=== PATIENT | male | born 1935 | race Caucasian/White ===

== ENCOUNTER 2017-01-23 15:25 | Inpatient (IN) ==
[2017-01-23] MEDS ORDERED: ENOXAPARIN 100 MG/ML SYRINGE SUBCUT STA (16:15)
[2017-01-23] MEDS ORDERED: ASPIRIN 325 MG TABLET PO STA (16:15)
--- NOTE | 2017-01-23 16:19 | EKG Report ---
Stationary ECG Study [facility] ER Test Date: 01/23/2017 3:35:43 PM Pat Name: DENNISE VALLES Department: Room: Gender: M Director Process Improvement: : 1935 Requested by: Hira Adorno Order Number: [id number] Reading MD: ANNA FERNANDO Intervals [place] Rate: 82 P: 78 RI: 174 QRS: 53 QRSD: 85 T: 64 QT: 359 QTc: 398 Interpretive Statements SINUS RHYTHMAt 82 bpm NST, consider ischemia Electronically Signed On 01-24-17 10:25:45 CDT by ANNA FERNANDO [id number]
[2017-01-23 16:23] LABS: Basophils # 0.1 10*3/uL (0.0-0.2); Basophils % 2.6 % (0.0-0.8); Eosinophils # 0.1 10*3/uL (0.0-0.87); Eosinophils % 2.6 % (0.00-10.9); Hematocrit 34.8 VOL% (42.0-52.0); Hemoglobin 10.9 GM/DL (14.0-18.0); Immature Granulocytes % 0.4 %; Immature Granulocytes Absolute 0.02 #; Lymphocytes # 1.2 10*3/uL (1.4-4.0); Lymphocytes % 26.4 % (21.2-54.2); Mean Corpuscular HGB Conc 31.3 GM/DL (32-36); Mean Corpuscular Hemoglobin 25 PG (27-34); Mean Corpuscular Volume 78.6 FL (87-102); Mean Platelet Volume 11.4 FL (9.6-12.0); Monocytes # 0.5 10*3/uL (0.11-0.8); Monocytes % 9.7 % (1.7-12.7); Neutrophils # 2.7 10*3/uL (1.4-7.4); Neutrophils % 58.3 % (38.7-73.9); Platelet Count 328 T/CUMM (130-400); Red Blood Count 4.43 MC/CUMM (3.8-5.5); Red Cell Distribution Width 15.8 % (9.3-17.3); White Blood Count 4.6 T/CUMM (4-12)
[2017-01-23] MEDS ORDERED: ASPIRIN 325 MG TABLET ONE (16:27)
[2017-01-23] MEDS ORDERED: ENOXAPARIN 80 MG/0.8 ML SYRINGE SUBCUT ONE (16:27)
[2017-01-23 16:39] LABS: Alanine Aminotransferase 16 U/L (16-61); Albumin 3.8 G/DL (3.4-5.0); Alkaline Phosphatase 103 U/L (45-117); Aspartate Amino Transferase 13 U/L (0-37); Bilirubin,Total < 0.39 MG/DL (0.2-1.0); Blood Urea Nitrogen 11 MG/DL (7-18); Calcium 8.8 MG/DL (8.5-10.1); Glucose 95 MG/DL (74-106); Magnesium 2.8 MG/DL (1.8-2.4); Osmolality,Calculated 279.3 MOS/KG (273-304); Sodium 141 MMOL/L (136-145); Total Protein 6.9 G/DL (6.4-8.3)
[2017-01-23 16:44] LABS: Band Neutrophils 1 % (0-10); Eosinophils 3 % (0-10); Lymphocytes 28 % (20-55); Platelet Estimate Adequate; Segmented Neutrophils 55 % (50-85); Total Cells Counted 100
--- NOTE | 2017-01-23 16:53 | XRay Report ---
XR chest 1V portable Indication: Chest pain. Comparison: Chest x-ray 09/09/2013 Technique: Portable AP chest was performed. Findings: The heart size appears within normal limits. Chronic changes of the aortic knob appears stable. Pulmonary vasculature demonstrates no specific abnormality. Hilar structures demonstrate fairly symmetric appearance. The lungs demonstrate a pattern of stranding within the lung bases which is somewhat nonspecific suggesting chronic interstitial disease or possibly atelectatic change. Minimal blunting of the right costophrenic angle is present. Emphysematous changes are not excluded. Bones and soft tissues demonstrate no evidence of acute pathology. Impression: 1. Emphysematous changes and I excluded. No superimposed acute process is suggested within the chest. 01/23/2017 4:50 PM PROCEDURE INTERPRETED AT [facility] DEPARTMENT OF RADIOLOGY Final Report Signed by: Dr. Bandar Goodman
[2017-01-23] MEDS ORDERED: ALBUTEROL/IPRATROPIUM 3 ML NEB RESP TX STA (16:59)
--- NOTE | 2017-01-23 17:08 | Emergency Department Note ---
Jac Ortega Hilary, am scribing for, and in the presence of, Hira Key MD 16:10. Yesi Ortega Phillip K, MD, personally performed the services described in this documentation, ascribed by Jany Nathan in my presence, and it is both accurate and complete [id number] . Arrival - Arrival Chief Complaint: Chest Pain Stated Complaint: CHEST PAIN, SOB ED Nursing Triage Note: pt had chest pain 3 weeks ago then it went away. c/o chest pain. states is hurts deep. +sob Mode of Arrival: Wheelchair Limitations: No Limitations Source: Patient, RN Notes Reviewed - History of Present Illness HPI Narrative: Pt is a 81 y/o white male presenting to the ED with c/o chest pain which onset 3 weeks ago and is intermittent. Pt reports that the pain is sharp and midsternal that radiates to both shoulders. Pt confirms swelling in his feet, intermittent chest pain, and chronic SOB but denies fever, cough, diaphoresis, nausea or vomiting. Pt has a PMHx of COPD and HTN. No other complaints or problems stated in the ED. Onset (ago): week(s) Consistency: intermittent Allergies/Adverse Reactions: Allergies Allergy/AdvReac Type Severity Reaction Status Date / Time iodine Allergy Severe Swelling Verified 05/05/16 06:53 of Lip/Tongue/Throat Sulfa (Sulfonamide Allergy Severe Swelling Verified 05/05/16 06:53 Antibiotics) of Lip/Tongue/Throat codeine Allergy Mild RASH Verified 05/05/16 06:53 Home Medications: Home Medications Medication Instructions Recorded Confirmed Type Amitriptyline [Elavil] 25 mg PO BEDTIME 05/04/16 01/23/17 History Budesonide/Formoterol 160-4.5 2 puff INH BID 05/04/16 01/23/17 History [Symbicort 160-4.5] Omeprazole 1 tablet PO DAILY 05/04/16 01/23/17 History Tamsulosin [Flomax] 0.4 mg PO DAILY 05/04/16 01/23/17 History amLODIPine [Norvasc] 10 mg PO BEDTIME 05/04/16 01/23/17 History Cholecalciferol (Vitamin D3) 2,000 units PO BID 05/05/16 01/23/17 History [Vitamin D3] Ipratropium/Albuterol Sulfate 3 ml INH QID 05/05/01/23/17 History [Iprat-Albut 0.5-3(2.5) mg/3 ml] Albuterol Sulfate [Ventolin HFA] 2 puff INH Q4H PRN 01/23/17 01/23/17 History Review of System - Review of System 12 point system: reviewed and no additional remarkable complaints except as stated - Review of System Constitutional: Absent: fever Respiratory: Present: respiratory distress (SOB). Absent: cough Cardiovascular: Present: chest pain Gastrointestinal: Absent: nausea, vomiting Musculoskeletal: Present: joint swelling (feet swelling) Medical,Surgical,& Family Hx - Medical History Cardio: History of: Hypertension (BP MED AT NIGHT) Neurology: No history of: Seizures HEENT: History of: Ear Problem, Eye Problem (GLASSES), Dental Problems (DENTURES ) Rheumatology: History of;: Rheumatoid Arthritis Other: History of: Skin Problems (LESION/NASAL) - Surgical History HEENT Surgeries: Surgical HX of: Eye Surgery (COD), Tonsilectomy & Adenoidectomy - Family History Family History: Reports;: Family Heart Disease (PARENTS) - Social History Smoking Status: Never smoker Frequency of Alcohol Use: None Type of Drug Use: None Exam Vital Signs: Vital Signs Temperature 98.3 F 01/23/17 15:34 Pulse Rate 81 01/23/17 17:20 Respiratory Rate 18 01/23/17 17:20 Blood Pressure 134/64 01/23/17 15:34 O2 Sat by Pulse Oximetry 95 01/23/17 15:34 - General General appearance: alert, in no apparent distress - Head Head exam: Present: atraumatic, normocephalic - Eye Eye exam: Present: normal appearance, PERRL, EOMI - ENT ENT exam: Present: mucous membranes dry, TM's normal bilaterally. Absent: mucous membranes moist - Neck Neck exam: Present: full ROM, trachea midline. Absent: tenderness - Chest Chest inspection: Present: symmetric chest wall rise. Absent: tenderness - Respiratory Respiratory exam: Present: prolonged expiratory phase, wheezes (diffused expiratory wheezing bilaterally) - Cardiovascular Cardiovascular exam: Present: regular rate, normal rhythm, murmur (2/6 systolic ejection murmur) - Abdominal Exam Abdominal exam: Present: soft, normal bowel sounds. Absent: distention, tenderness - Extremities Exam Extremities exam: Present: full ROM, pedal edema (3+ edema in left leg and 2+ edema in right leg with swelling in the calf). Absent: tenderness - Back Exam Back exam: Present: full ROM. Absent: tenderness - Neurological Exam Neurological exam: Present: alert, oriented X3, CN II-XII intact. Absent: motor sensory deficit - Psychiatric Psychiatric exam: Present: normal affect, normal mood - Skin Skin exam: Present: warm, dry, intact, normal color. Absent: rash Course Course Narrative: Patient discussed with Dr. Armenta Results - Labs CBC & BMP: 01/23/17 15:44 01/23/17 15:44 Lab Results: I have reviewed the patients labs (Troponin is 0.105) - EKG EKG results: interpreted by MARGARETTE, sinus rhythm (ST depression laterally with some suggestion of an old septal infarct. Patient also has some ST depression noted in the inferior leads.) - Diagnostic Findings Procedure: Chest x-ray: report reviewed by me (Emphysema) Disposition Clinical Impression: Chest pain, Possible unstable angina Case discussed with: patient Disposition: Still a Patient Condition: Guarded Additional Instructions: Admit for further workup
[2017-01-23] MEDS ORDERED: ONDANSETRON 4 MG/2 ML VIAL IV PRN (17:36)
[2017-01-23] MEDS ORDERED: MAGNESIUM SULF RIDER 2 GM in PREMIX 1 EACH IV PRN (17:36)
[2017-01-23] MEDS ORDERED: MAGNESIUM SULF RIDER 4 GM in PREMIX 1 EACH IV PRN (17:36)
[2017-01-23] MEDS ORDERED: ACETAMINOPHEN 325 MG TABLET PO PRN (17:36)
[2017-01-23] MEDS ORDERED: ALBUTEROL 1.25 MG/3 ML NEB RESP TX PRN (21:13)
[2017-01-23] MEDS: AMITRIPTYLINE 25 MG TABLET PO SCH (21:29)
[2017-01-23] MEDS ORDERED: amLODIPine 10 MG TABLET PO SCH (21:30)
[2017-01-23] MEDS: CHOLECALCIFEROL 1,000 UNIT TABLET PO SCH (21:38)
[2017-01-23] MEDS: BUDESONIDE/FORMOTEROL 160-4.5 INHALER 6 GM INH SCH (21:38)
[2017-01-23] MEDS ORDERED: NON-FORMULARY MEDICATION (Albuterol Sulfate [Ventolin Hfa] 2 PUFF) INH PRN (22:19)
--- NOTE | 2017-01-23 22:24 | Cardiology History & Physical ---
Assessment and Plan (1) Chest pain Status: Acute Current Visit: Yes (2) Elevated troponin Status: Acute Current Visit: Yes (3) Hypertension Status: Chronic Current Visit: Yes (4) Carotid bruit Status: Acute Current Visit: Yes (5) Murmur Status: Acute Current Visit: Yes (6) Lower extremity edema Status: Chronic Current Visit: Yes (7) Abdominal aneurysm Status: Acute Current Visit: Yes (8) COPD (chronic obstructive pulmonary disease) Status: Chronic Current Visit: Yes (9) Anemia Status: Acute Current Visit: Yes (10) Allergy to iodine Status: Chronic Current Visit: Yes (11) Allergy to JUSTA inhibitors Status: Chronic Current Visit: Yes History of Present Illness Chief complaint: Chest pain History of present illness: Go Go Dancer: None Primary CARE provider: Dr. Yu Mr. Kumari is a 81 year old male without a prior cardiac history, with risk factors significant for a family history of coronary disease, hypertension, advanced age, tobacco use. He has been experiencing chest pain for approximately 1 month. It is described as a deep aching that radiates up into his shoulders. Initially he does not describe any clear triggers or alleviators , but his daughter is present and provides additional history that his mother has described to her on numerous occasions that his chest discomfort occurs with exertion. Was beginning to happen with less exertion and the severity was increasing. There is some associated shortness of breath. He does have chronic stable dyspnea on exertion but this is worse now when the chest pain is present. He has had some worsening bilateral lower extremity edema, left greater than right. He is currently pain-free. He denies a history of melena, bright red blood per rectum, kidney stones, history of GI bleeding. He does have a history of allergy to JUSTA inhibitors and shrimp/ iodine which cause tongue swelling. Is not clear to me that he is ever actually been exposed to the iodine contrast, but they do describe "iodine" as an allergy. Cardiac biomarkers are mildly abnormal. He has an unstable gait, but does not fall frequently. He has some diffuse arthralgias. There is some question as to whether or not he has a history of an abdominal aortic aneurysm, they believe he does but this has not recently been screened. Impression and plan: 1. Suspected acute coronary syndrome-the patient has chest discomfort with mildly elevated cardiac biomarkers. He is it at least intermediate risk of having underlying coronary artery disease. I have discussed the role, risks and benefits of cardiac catheterization with the patient and he is agreeable to proceeding. We will need to pretreat him for iodine allergy. We will need to workup his anemia, obtain bilateral carotid ultrasounds, echocardiogram, bilateral lower extremity venous Dopplers and abdominal ultrasound assessment for possible abdominal aortic aneurysm prior to this procedure. 2. Bilateral carotid bruits-this may be radiation of an aortic murmur and we will order bilateral carotid Dopplers. 3. Possible history of abdominal aortic aneurysm-we will need to get an ultrasound to determine its severity. 4. Edema-this may be related to the Norvasc but is asymmetrical left greater than right. We will rule out bilateral lower extremity DVTs. 5. Murmur-he has a murmur of aortic stenosis with possible mitral regurgitation. We will need to obtain an echocardiogram to determine the severity. 6. Anemia-this is microcytic. He has no awareness of this. We will need to get iron studies and stool studies to further diagnosis. 7. Iodine allergy-we will pretreat him for cardiac catheterization with steroids And antihistamines. 8. JUSTA inhibitor allergy Home Medications Medication Instructions Recorded Confirmed Type Amitriptyline [Elavil] 25 mg PO BEDTIME 05/04/16 01/23/17 History Budesonide/Formoterol 160-4.5 2 puff INH BID 05/04/16 01/23/17 History [Symbicort 160-4.5] Omeprazole 1 tablet PO DAILY 05/04/16 01/23/17 History Tamsulosin [Flomax] 0.4 mg PO DAILY 05/04/16 01/23/17 History amLODIPine [Norvasc] 10 mg PO BEDTIME 05/04/16 01/23/17 History Cholecalciferol (Vitamin D3) 2,000 units PO BID 05/05/16 01/23/17 History [Vitamin D3] Ipratropium/Albuterol Sulfate 3 ml INH QID 05/05/16 01/23/17 History [Iprat-Albut 0.5-3(2.5) mg/3 ml] Albuterol Sulfate [Ventolin HFA] 2 puff INH Q4H PRN 01/23/17 01/23/17 History Allergies Allergy/AdvReac Type Severity Reaction Status Date / Time iodine Allergy Severe Swelling Verified 05/05/16 06:53 of Lip/Tongue/Throat Sulfa (Sulfonamide Allergy Severe Swelling Verified 05/05/16 06:53 Antibiotics) of Lip/Tongue/Throat codeine Allergy Mild RASH Verified 05/05/16 06:53 JUSTA Inhibitors Allergy Swelling Verified 01/23/17 22:19 of Lip/Tongue/Throat 12 point system: reviewed and no additional remarkable complaints except as stated Medical,Surgical,& Family Hx - Medical History Cardio: History of: Hypertension (BP MED AT NIGHT) Neurology: No history of: Seizures HEENT: History of: Ear Problem, Eye Problem (GLASSES), Dental Problems (DENTURES ) Rheumatology: History of;: Rheumatoid Arthritis Respiratory: History of: COPD (Followed by Dr. Conner) Other: History of: Skin Problems (LESION/NASAL) - Surgical History HEENT Surgeries: Surgical HX of: Eye Surgery (COD), Tonsilectomy & Adenoidectomy - Family History Family History: Reports;: Family Heart Disease (PARENTS) - Social History Smoking Status: Never smoker Frequency of Alcohol Use: None Type of Drug Use: None Marital Status: Lives With:: Spouse Functional capacity: uses cane/walker Cardiology Physical Exam - Constitutional Vitals: Vital Signs Temp Pulse Resp BP Pulse Ox 97.4 F L 91 H 20 132/79 99 01/23/17 19:47 01/23/17 19:47 01/23/17 19:47 01/23/17 19:47 01/23/17 19:47 Intake and Output 01/23/17 01/23/17 01/23/17 07:59 15:59 23:59 Other: Weight 68.946 kg Patient Weight 01/23/17 23:59 Weight 68.946 kg Exam: General appearance: normal weight, no acute distress - Head Head exam: Present: normal inspection, normocephalic, atraumatic. Absent: hematoma, laceration - Eye Eye exam: Present: EOMI. Absent: conjunctival injection, nystagmus, periorbital swelling, scleral icterus, laceration to eyelids Pupils: Present: PERRL. Absent: constricted, dilated, fixed, irregular, unequal - ENT ENT exam: Present: normal exam, normal external ear exam - Neck Neck exam: Present: normal inspection. Absent: lymphadenopathy, meningismus, tenderness, thyromegaly - Respiratory Respiratory exam: Present: Prolonged expiration bilaterally with scant wheezing. Absent: accessory muscle use, chest wall tenderness - Cardiovascular Cardiovascular exam: Present: regular rate and rhythm with a 3/6 holosystolic murmur. The carotid pulse is not delayed or weakened, but there are bilateral carotid bruits right greater than left. Absent: gallop, JVD, rubs - GI/Abdominal GI/Abdominal exam: Present: normal bowel sounds, soft. Absent: distended, firm , guarding, hernia, mass, tenderness, rebound. - Extremities Exam Extremities exam: Present: Mildly decreased pulses with 1+ right lower extremity edema, 2+ left lower extremity edema. Absent: calf tenderness - Back Exam Back exam: Present: normal inspection. Absent: muscle spasm, vertebral tenderness - Neurological Exam Neurological exam: Present: alert, oriented X3, grossly intact without resting or intention tremor - Psychiatric Psychiatric exam: Present: normal affect, normal mood - Skin Skin exam: Present: normal color, warm, dry, intact. Absent: cyanosis, diaphoretic, rash, urticaria Result/EKG - Labs CBC & BMP: 01/23/17 15:44 01/23/17 15:44 Lab Results: I have reviewed the past 24 hour labs Labs: Laboratory Results - last 24 hr 01/23/17 19:25 Troponin I 0.114 H - Diagnostic Findings Procedure: Chest x-ray: report reviewed by me - EKG EKG results: interpreted by me, sinus rhythm, no acute changes Quality Measures - Stroke Symptom Onset Unknown: No
[2017-01-23] MEDS ORDERED: POTASSIUM CHLORIDE RIDER 10 MEQ in PREMIX 1 EACH IV PRN (22:31)
[2017-01-23] MEDS: SODIUM CHLORIDE 0.45% 1,000 ML IV SCH (23:15)
[2017-01-24] MEDS: ALBUTEROL/IPRATROPIUM 3 ML NEB RESP TX SCH ×4 (01:38→19:34)
[2017-01-24] MEDS ORDERED: NITROGLYCERIN SL 0.4 MG TABLET SL ONE (02:43)
[2017-01-24] MEDS: NITROGLYCERIN SL 0.4 MG TABLET SL PRN ×3 (02:45→11:53)
[2017-01-24] MEDS ORDERED: diphenhydrAMINE CAP 25 MG CAPSULE PO ONE (06:00)
[2017-01-24] MEDS ORDERED: DIAZEPAM 5 MG TABLET PO ONE (06:00)
[2017-01-24 06:17] LABS: Basophils # 0.1 10*3/uL (0.0-0.2); Basophils % 3.5 % (0.0-0.8); Eosinophils # 0.1 10*3/uL (0.0-0.87); Eosinophils % 2.8 % (0.00-10.9); Hematocrit 32.7 VOL% (42.0-52.0); Hemoglobin 9.9 GM/DL (14.0-18.0); Immature Granulocytes % 0.3 %; Immature Granulocytes Absolute 0.01 #; Lymphocytes # 1.1 10*3/uL (1.4-4.0); Lymphocytes % 27.5 % (21.2-54.2); Mean Corpuscular HGB Conc 30.3 GM/DL (32-36); Mean Corpuscular Hemoglobin 24 PG (27-34); Mean Corpuscular Volume 78.4 FL (87-102); Mean Platelet Volume 11.7 FL (9.6-12.0); Monocytes # 0.5 10*3/uL (0.11-0.8); Monocytes % 12.9 % (1.7-12.7); Neutrophils # 2.1 10*3/uL (1.4-7.4); Platelet Count 307 T/CUMM (130-400); Red Blood Count 4.17 MC/CUMM (3.8-5.5); Red Cell Distribution Width 15.9 % (9.3-17.3)
[2017-01-24 06:44] LABS: % Iron Saturation 8.2 % (18-50); Calcium 8.9 MG/DL (8.5-10.1); Magnesium 2.7 MG/DL (1.8-2.4); Potassium 4.5 MMOL/L (3.5-5.1); Risk Ratio 4.33; VLDL CHOLESTEROL 27.8 MG/DL
[2017-01-24 06:51] LABS: Folate > 24.0 NG/ML (5.4-24.0); Vitamin B12 367 PG/ML (211-911)
[2017-01-24 06:54] LABS: Eosinophils 6 % (0-10); Hypochromasia 1+; Lymphocytes 32 % (20-55); Platelet Estimate Adequate; Segmented Neutrophils 50 % (50-85); Total Cells Counted 100
[2017-01-24 06:55] LABS: Ovalocytes Slight
--- NOTE | 2017-01-24 07:47 | Ultrasound Report ---
Referring physician: Mariam Armenta MD Exam: Bilateral lower extremity venous ultrasound Date: January 24, 2017 Comparison: None Reason: Bilateral lower extremity edema, left greater than right Technique: Duplex scan of the bilateral lower extremity veins was performed using B-Mode/grayscale imaging and Doppler spectral analysis and color flow. Ultrasound images were captured and stored. Findings: There is no evidence of thrombus within the left or right common femoral veins, saphenous veins, superficial femoral veins or popliteal veins. Normal compression and augmentation are present throughout. Normal color flow and spectral analysis are observed. Impression: No evidence of deep venous thrombosis within either lower extremity. PROCEDURE INTERPRETED AT [facility] DEPARTMENT OF RADIOLOGY Final Report Signed by: Dr. Kiara Perez
--- NOTE | 2017-01-24 08:17 | EKG Report ---
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
--- NOTE | 2017-01-24 08:29 | Ultrasound Report ---
Referring physician: Mariam Armenta MD Exam: Carotid ultrasound Date: January 24, 2017 Comparison: None Reason: Bilateral carotid bruit Technique: Duplex scan of the carotid arteries was performed using B-Mode/grayscale imaging and Doppler spectral analysis and color flow. Ultrasound images were captured and stored. Findings: There is calcified plaque at the common carotid arteries, carotid bifurcations and proximal internal carotid arteries bilaterally. The right ICA measures 0.33 cm in diameter, and the left ICA measures 0.25 cm in diameter. The peak systolic velocities are as follows: Right CCA: 216 cm/s Right proximal ICA: 141 cm/s Right distal ICA: 199 cm/s Right ECA: 177 cm/s Left CCA: 138 cm/s Left proximal ICA: 110 cm/s Left distal ICA: 99 cm/s Left ECA: 113 cm/s The peak systolic ICA/CCA velocity ratios are as follows: 0.9 on the right and 0.8 on the left. Antegrade flow is present within both vertebral arteries. Impression: 1. There is elevated velocity at the right cervical ICA, which is concerning for greater than 50% stenosis. The right ICA is not well-visualized near its origin, and high-grade stenosis cannot be excluded in this region. Correlation with a CTA or MRA of the neck is recommended. 2. 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 3. The Society of Radiologists in Ultrasound consensus conference criteria was used. PROCEDURE INTERPRETED AT [facility] DEPARTMENT OF RADIOLOGY Final Report Signed by: Dr. Kiara Perez
[2017-01-24] MEDS ORDERED: NON-FORMULARY MEDICATION (Cholecalciferol (Vitamin D3) [Vitamin D3] 2,000 UNITS) PO SCH (09:00)
[2017-01-24] MEDS ORDERED: TAMSULOSIN 0.4 MG CAPSULE PO SCH (09:00)
[2017-01-24] MEDS ORDERED: diphenhydrAMINE CAP 50 MG CAPSULE PO PRN (09:32)
[2017-01-24] MEDS: FAMOTIDINE 20 MG/2 ML VIAL IV SCH ×2 (10:21→22:18)
[2017-01-24] MEDS: methylPREDNISolone SOD SUC 125 MG/2 ML VIAL IV SCH ×2 (10:21→18:21)
[2017-01-24] MEDS: PANTOPRAZOLE 40 MG TABLET PO SCH (10:22)
[2017-01-24] MEDS: CHOLECALCIFEROL 1,000 UNIT TABLET PO SCH ×2 (10:22→20:25)
[2017-01-24] MEDS: BUDESONIDE/FORMOTEROL 160-4.5 INHALER 6 GM INH SCH ×2 (10:23→20:25)
--- NOTE | 2017-01-24 11:11 | History and Physical Update ---
Sedation H&P Update - Dictation Physical: refer to H&P completed by admitting physician - Physical Exam Mental Status: alert and oriented Heart: regular rate and rhythm, other (murmur) Lung: clear to auscultation Abdomen: within normal limits Vitals: within normal limits - Sedation Plan for Sedation: moderate Patient Consent: Procedure disscussed with patient and patinet has consented., Risks and benefits were discussed with patient,including infection,, bleeding, injury to surrounding structures, seizure, temporary nerve, Patient understands and accepts potential risks/benefits and agrees to, proceed. ASA Class: IV Airway Assessment: Class I: Soft palate, uvula, fauces, pillars visible
[2017-01-24] MEDS ORDERED: HEPARIN/NACL 0.9% 2 UNITS/ML 1,000 ML IV ONE (11:56)
[2017-01-24] MEDS ORDERED: LIDOCAINE 1% 20 ML VIAL ONE (11:56)
[2017-01-24] MEDS ORDERED: SODIUM BICARBONATE 2.4 MEQ/5 ML VIAL ONE (11:57)
[2017-01-24] MEDS ORDERED: MIDAZOLAM 2 MG/2 ML VIAL ONE ×5 (12:07→13:06)
[2017-01-24] MEDS ORDERED: fentaNYL 100 MCG/2 ML VIAL ONE (12:07)
[2017-01-24] MEDS ORDERED: NITROGLYCERIN DRIP 50 MG/250 ML BOTTLE IV ONE (12:09)
--- NOTE | 2017-01-24 12:17 | ECHO Report ---
Luis Miguel Kumari Exam Date: 01/24/2017 09:43 Referring Physician: Technologist: Concepcion Bass Age: 81 Ht (in): 71 Wt (lb): 152 Gender: M Exam Location: [facility] Echo Indications: Chest pain, unspecified, Essential (primary) hypertension, Murmur, Elevated tropnonin BP: 103 / 58 HR: 85 Rhythm: Sinus Technical Quality: Poor IMPRESSIONS Low normal mildly reduced LV systolic function, ejection fraction 50%. Grade 1/4 diastolic dysfunction. Moderate to severe left ventricular hypertrophy. Mildly dilated right ventricle. There is mild mitral and tricuspid regurgitation. MEASUREMENTS (Male / Female) Normal Values 2D ECHO LV Diastolic Diameter PLAX 3.0 cm 4.2 - 5.9 / 3.9 - 5.3 cm LV Systolic Diameter PLAX 2.4 cm LV Fractional Shortening PLAX 19.6 % IVS Diastolic Thickness 2.0 cm 0.6 - 1.0 / 0.6 - 0.9 cm LVPW Diastolic Thickness 1.9 cm 0.6 - 1.0 / 0.6 - 0.9 cm RV Internal Dim ED PLAX 4.7 cm Aortic Root Diameter 3.5 cm LA Systolic Diameter LX 4.0 cm 3.0 - 4.0 / 2.7 - 3.8 cm DOPPLER TR Peak Velocity 300.0 cm/s TR Peak Gradient 36.0 mmHg FINDINGS Left Ventricle Decreased left ventricular cavity size. Moderate to severe left ventricular hypertrophy. Left ventricular ejection fraction is estimated at 50 %. There is no regional wall motion abnormality. Right Ventricle Mildly dilated Right Atrium Normal size. Left Atrium Normal size. Mitral Valve There is calcification of the valve and annulus without significant stenosis. Mild mitral valve regurgitation. Aortic Valve Aortic valve sclerosis. Moderate aortic valve stenosis. Peak gradient is 84 mmHg, mean gradient 51 mmHg, aortic valve VTI is 122 cm, LVOT VTI is 30.7 cm. VTI ratio is 0.25. These findings are consistent with severe aortic stenosis. Tricuspid Valve Structurally normal with mild regurgitation. Right ventricular systolic pressures estimated at 46 mmHg. Pulmonic Valve Not well seen. Pericardium No significant effusion. Aorta Normal caliber. Mariam Armenta MD (Electronically Signed) Final Date: 24 Jan 2017 12:16
[2017-01-24] MEDS ORDERED: MORPHINE 10 MG/1 ML VIAL ONE (12:51)
[2017-01-24] MEDS ORDERED: HEPARIN/NACL 0.9% 2 UNITS/ML 500 ML IV ONE (13:01)
[2017-01-24] MEDS ORDERED: PHENYLEPHRINE 50 MG/5 ML VIAL ONE (13:04)
--- NOTE | 2017-01-24 13:42 | Anesthesia Procedures ---
Anesthesia Procedures - Intubation Time out performed intubation: Yes Sedative: Etomidate Mg given sedative: 20 Paralytic: Succinylcholine Mg given paralytic: 160 Laryngoscope: Josh (4) ET Tube Size: 8 ET Tube Uncuffed: No Tube Secured Depth (cm): 22 Tube Secured Location: lips Tube Placement Confirmation: visualized tube passing through cords, equal breath sounds bilaterally, no breath sounds over epigastrium, confirmation by capnometry, confirmation detector color change Patient tolerated procedure intubation: well Intubation Complications: none (Dr. Garcia inserted IABP and patient stabilized)
[2017-01-24] MEDS: SODIUM CHLORIDE 0.45% 1,000 ML IV SCH (14:35)
[2017-01-24] MEDS: PROPOFOL 1,000 MG/100 ML BOTTLE IV SCH (14:45)
[2017-01-24] MEDS: HEPARIN DRIP 25,000 UNITS/500 ML PREMIX IV SCH (14:48)
[2017-01-24 14:58] LABS: Apearance,Urine CLEAR (Clear); Bilirubin,Urine Negative (Negative); Blood, Urine Small mg/dL (Negative); Glucose,Urine (UA) Negative (Negative); Ketones,Urine 5 mg/dL (Negative); Nitrite,Urine Negative (Negative); Protein,Urine Negative; RBC,Urine 1 /HPF (0-4); Urine Color Straw (Yellow); Urine Specific Gravity 1.004 (1.001-1.035); Urine Urobilinogen < 2.0 EU/DL (0.2-1.0); WBC,Urine 2 /HPF (0-6)
--- NOTE | 2017-01-24 15:12 | EKG Report ---
Stationary ECG Study [facility] Test Date: 01/24/2017 3:09:20 PM Pat Name: DENNISE VALLES Department: Room: 104 Gender: M Ramp Boss: CODEY : 1935 Requested by: Jean Marie Mercado Order Number: [id number] Reading MD: STEPHANIE ARELLANO Intervals [place] Rate: 80 P: 68 LA: 185 QRS: 46 QRSD: 86 T: 76 QT: 396 QTc: 432 Interpretive Statements SINUS RHYTHM PROBABLE SEPTAL MYOCARDIAL INFARCTION, PROBABLY OLD Electronically Signed On 01-24-17 21:59:39 CDT by STEPHANIE ARELLANO [email or web address]
--- NOTE | 2017-01-24 15:44 | Pulmonology Consult Note ---
Assessment and Plan (1) Coronary artery disease Status: Acute Assessment and plan: The patient has had a heart cath today and has coronary artery disease. He is on a balloon pump now in the ICU. Current Visit: Yes (2) Aortic stenosis Status: Acute Assessment and plan: The patient has aortic stenosis that is fairly severe on echo. Current Visit: Yes (3) Chest pain Status: Acute Assessment and plan: Patient came in with unstable angina. Current Visit: Yes (4) Hypertension Status: Chronic Assessment and plan: His blood pressure stable at present. Current Visit: Yes (5) COPD (chronic obstructive pulmonary disease) Status: Chronic Assessment and plan: The patient has COPD that is moderate to markedly severe. His FEV1 was around 50% in 2015. His chest x-ray certainly suggest COPD changes. Current Visit: Yes (6) On mechanically assisted ventilation Status: Acute Assessment and plan: We will continue ventilatory support until he stabilizes. Current Visit: Yes History of Present Illness Chief complaint: Ventilator management History of present illness: Mr. Kumari is a 81 year old white male that has been a smoker in the past and has a history of COPD. He came in with some atypical chest pain but was felt to possibly have some cardiac disease. He has had an aortic murmur along with hypertension. He has smoked off and on for a long time. He came in for evaluation and went to the [facility] and has been found to have significant coronary artery disease. He became hypotensive and had to be intubated and placed on the balloon pump. He is now stable on the ventilator in the ICU. He does have a history of COPD and his last FEV1 was 1.4 L. We saw him in early December and he had been relatively stable without a lot of symptoms then. He got some lab work that was unremarkable and got refills of his medicines. Home Medications Medication Instructions Recorded Confirmed Type Amitriptyline [Elavil] 25 mg PO BEDTIME 05/04/16 01/23/17 History Budesonide/Formoterol 160-4.5 2 puff INH BID 05/04/16 01/23/17 History [Symbicort 160-4.5] Omeprazole 1 tablet PO DAILY 05/04/16 01/23/17 History Tamsulosin [Flomax] 0.4 mg PO DAILY 05/04/16 01/23/17 History amLODIPine [Norvasc] 10 mg PO BEDTIME 05/04/16 01/23/17 History Cholecalciferol (Vitamin D3) 2,000 units PO BID 05/05/16 01/23/17 History [Vitamin D3] Ipratropium/Albuterol Sulfate 3 ml INH QID 05/05/16 01/23/17 History [Iprat-Albut 0.5-3(2.5) mg/3 ml] Albuterol Sulfate [Ventolin HFA] 2 puff INH Q4H PRN 01/23/17 01/23/17 History Allergies Allergy/AdvReac Type Severity Reaction Status Date / Time iodine Allergy Severe Swelling Verified 05/05/16 06:53 of Lip/Tongue/Throat Sulfa (Sulfonamide Allergy Severe Swelling Verified 05/05/16 06:53 Antibiotics) of Lip/Tongue/Throat codeine Allergy Mild RASH Verified 05/05/16 06:53 JUSTA Inhibitors Allergy Swelling Verified 01/23/17 22:19 of Lip/Tongue/Throat ROS unobtainable: due to endotracheal tube (Patient is sedated on the ventilator at present.) Exam (Pulmonay) H&P - Constitutional Vitals: Period Temp Pulse Resp BP Sys/Lyn Pulse Ox Last 24 Hr 97.3 F-98.7 F 70-91 15-20 103-149/57-91 92-100 General appearance: normal weight, no acute distress (Patient is sedated on the ventilator at present.) - Head Head exam: Present: normal inspection, normocephalic - Eye Eye exam: Present: EOMI. Absent: scleral icterus Pupils: Present: ALONSO - ENT ENT exam: Present: other (ET tube is in good position) - Neck Neck exam: Present: normal inspection. Absent: lymphadenopathy, thyromegaly - Respiratory Respiratory exam: Present: decreased breath sounds, prolonged expiratory phase, wheezes (He has very faint wheezing now) - Cardiovascular Cardiovascular exam: Present: regular rate and rhythm, systolic murmur (He has a systolic murmur in aortic area). Absent: gallop, JVD - GI/Abdominal GI/Abdominal exam: Present: soft. Absent: distended, organomegaly, tenderness - Extremities Exam Extremities exam: Absent: calf tenderness, edema - Neurological Exam Neurological exam: Present: other (Patient is sedated on the ventilator at present.) - Skin Skin exam: Present: warm, dry Medical,Surgical,& Family Hx - Medical History Cardio: History of: Hypertension (BP MED AT NIGHT) Neurology: No history of: Seizures HEENT: History of: Ear Problem, Eye Problem (GLASSES), Dental Problems (DENTURES ) Rheumatology: History of;: Rheumatoid Arthritis Respiratory: History of: COPD (Followed by Dr. Conner) Other: History of: Skin Problems (LESION/NASAL) - Surgical History HEENT Surgeries: Surgical HX of: Eye Surgery (COD), Tonsilectomy & Adenoidectomy - Family History Family History: Reports;: Family Heart Disease (PARENTS) - Social History Smoking Status: Former smoker Frequency of Alcohol Use: None Type of Drug Use: None Results - Labs CBC & BMP: 01/24/17 04:23 01/24/17 04:23 - Diagnostic Findings Procedure: Chest x-ray: image reviewed by me, report reviewed by me (Chest x- ray shows COPD changes.) Quality Measures - Stroke Symptom Onset Unknown: No
--- NOTE | 2017-01-24 16:07 | Cardiothoracic Consult ---
Assessment and Plan - Time spent with patient Time spent with patient: Greater than 30 minutes (1) Chest pain Status: Acute Assessment and plan: Risk Model and Variables - STS Adult Cardiac Surgery Database Version 2.81 RISK SCORES About the STS Risk Calculator Procedure: AV Replacement + CAB Risk of Mortality: 17.731% Morbidity or Mortality: 72.69% Long Length of Stay: 39.169% Short Length of Stay: 3.353% Permanent Stroke: 3.902% Prolonged Ventilation: 65.781% DSW Infection: 1.995% Renal Failure: 26.463% Reoperation: 21.026% 81-year-old gentleman with severe aortic stenosis and multivessel coronary artery disease he became transiently unstable with ST changes during his cardiac cath today. An intra-aortic balloon pump was inserted and the procedure was aborted. The patient improved after. As I evaluated the patient and discussed his issues with his family was noted that the patient functionally deteriorated significantly over the past year. He could not walk from his house to the mailbox over the preceding few months. He had severe COPD with last FEV1 done in 2014 showed only 50%. He has early renal failure with creatinine of 1.4 prior to his cath. At this point doing an emergency surgery for his coronary disease as well as his aortic valve would carry a prohibitive risk of mortality and/or morbidity as detailed above. His best chance is to let him improve from this emergency status and hopefully get him extubated and of the balloon pump and discuss the surgical option with him even with that his risk of surgery would still still be considerable. The other option would be to transfer him to an academic facility for evaluation for possible percutaneous valvuloplasty and PCI followed by TAVR. We will continue to discuss the situation with the family and hopefully with the patient when he starts to wake up and get extubated. Current Visit: Yes History of Present Illness - Data of Consult Patient: new to practice Consult date: 01/24/17 Requesting Physician: Mariam Armenta - Consult Narrative Reason for consult: NSTEMI With severe aortic stenosis and severe coronary artery disease History of present illness: Mr. Kumari is a 81 year old male who presented to the hospital with increasing chest pain and shortness of breath over the past few weeks. He had an echo yesterday showing severe aortic stenosis. He was scheduled for cath today. I got a call during the patient was having his cath done that the patient had ST changes on table as well as hemodynamic instability. The patient by report got intubated because he was very anxious and short of breath. Upon my arrival the patient was hemodynamically stable however his cath showed multivessel severe ostial coronary artery. CC: Mariam Armenta, - Home Medications and Allergies Home Medications: Home Medications Medication Instructions Recorded Confirmed Type Amitriptyline [Elavil] 25 mg PO BEDTIME 05/04/16 01/23/17 History Budesonide/Formoterol 160-4.5 2 puff INH BID 05/04/16 01/23/17 History [Symbicort 160-4.5] Omeprazole 1 tablet PO DAILY 05/04/16 01/23/17 History Tamsulosin [Flomax] 0.4 mg PO DAILY 05/04/16 01/23/17 History amLODIPine [Norvasc] 10 mg PO BEDTIME 05/04/16 01/23/17 History Cholecalciferol (Vitamin D3) 2,000 units PO BID 05/05/16 01/23/17 History [Vitamin D3] Ipratropium/Albuterol Sulfate 3 ml INH QID 05/05/16 01/23/17 History [Iprat-Albut 0.5-3(2.5) mg/3 ml] Albuterol Sulfate [Ventolin HFA] 2 puff INH Q4H PRN 01/23/17 01/23/17 History Allergies/Adverse Reactions: Allergies Allergy/AdvReac Type Severity Reaction Status Date / Time iodine Allergy Severe Swelling Verified 05/05/16 06:53 of Lip/Tongue/Throat Sulfa (Sulfonamide Allergy Severe Swelling Verified 05/05/16 06:53 Antibiotics) of Lip/Tongue/Throat codeine Allergy Mild RASH Verified 05/05/16 06:53 JUSTA Inhibitors Allergy Swelling Verified 01/23/17 22:19 of Lip/Tongue/Throat ROS unobtainable: due to endotracheal tube Medical,Surgical,& Family Hx - Medical History Cardio: History of: CAD, Hypertension (BP MED AT NIGHT), PVD, Valvular Heart Disease Neurology: No history of: Seizures HEENT: History of: Ear Problem, Eye Problem (GLASSES), Dental Problems (DENTURES ) Rheumatology: History of;: Rheumatoid Arthritis Respiratory: History of: COPD (Followed by Dr. Conner), Intubation, Respiratory Problems Renal: History of: Renal Failure Other: History of: Skin Problems (LESION/NASAL) - Surgical History HEENT Surgeries: Surgical HX of: Eye Surgery (COD), Tonsilectomy & Adenoidectomy - Family History Family History: Reports;: Family Heart Disease (PARENTS) - Social History Smoking Status: Former smoker Frequency of Alcohol Use: None Type of Drug Use: None Physical Examination Vital Signs Temp Pulse Resp BP Pulse Ox 98.3 F 95 H 20 134/64 95 01/23/17 15:34 01/23/17 15:34 01/23/17 15:34 01/23/17 15:34 01/23/17 15:34 General: Present: Other (Sedated and intubated with balloon pump in place) HEENT: Present: PERRL Neck: Present: Supple Neck Cardiac: Present: Reg Rate and Rhythm Lungs: Present: Bibasilar Rales, Wheezes, Scattered Rhonchi Abdomen: Present: Soft, Active Bowel Sounds Skin: Present: Clear Result/EKG - Labs CBC & BMP: 01/24/17 04:23 01/24/17 04:23 Labs: Laboratory Results - last 24 hr 01/23/17 01/23/17 01/24/17 19:25 22:10 04:23 WBC 4.0 RBC 4.17 Hgb 9.9 L Hct 32.7 L MCV 78.4 L MCH 24 L MCHC 30.3 L RDW 15.9 Plt Count 307 MPV 11.7 Neut % (Auto) 53.0 Lymph % (Auto) 27.5 [place] % (Auto) 12.9 H Eos % (Auto) 2.8 Baso % (Auto) 3.5 H Neut # (Auto) 2.1 Lymph # (Auto) 1.1 L [place] # (Auto) 0.5 Eos # (Auto) 0.1 Baso # (Auto) 0.1 Total Counted 100 Immature Gran % 0.3 Nucleated RBC % 0.0 Immature Gran # 0.01 Segmented Neutrophils 50 Lymphocytes 32 Monocytes 8 Eosinophils 6 Basophils 4.0 H Nucleated RBCs # 0.00 Platelet Estimate Adequate Hypochromasia 1+ Ovalocytes Slight Morphology Comment Sodium Potassium Chloride Carbon Dioxide Anion Gap BUN Creatinine GFR Calculation BUN/Creatinine Ratio Glucose Calculated Osmolality Calcium Magnesium Iron TIBC % Saturation Troponin I 0.114 H 0.091 H D Triglycerides Cholesterol LDL Cholesterol VLDL Cholesterol HDL Cholesterol Heart Disease Risk Ratio Vitamin B12 Folate Urine Color Urine Appearance Urine pH Ur Specific [place] Urine Protein Urine Glucose (UA) Urine Ketones Urine Blood Urine Nitrate Urine Bilirubin Urine Urobilinogen Urine Leukocytes Urine RBC Urine WBC Ur Culture Indicated? 01/24/17 01/24/17 01/24/17 04:23 04:23 14:00 WBC RBC Hgb Hct MCV MCH MCHC RDW Plt Count MPV Neut % (Auto) Lymph % (Auto) [place] % (Auto) Eos % (Auto) Baso % (Auto) Neut # (Auto) Lymph # (Auto) [place] # (Auto) Eos # (Auto) Baso # (Auto) Total Counted Immature Gran % Nucleated RBC % Immature Gran # Segmented Neutrophils Lymphocytes Monocytes Eosinophils Basophils Nucleated RBCs # Platelet Estimate Hypochromasia Ovalocytes Morphology Comment Sodium 143 Potassium 4.5 Chloride 108 H Carbon Dioxide 26 Anion Gap 13.5 BUN 14 Creatinine 1.40 H GFR Calculation 51 BUN/Creatinine Ratio 10.00 Glucose 86 Calculated Osmolality 284.0 Calcium 8.9 Magnesium 2.7 H Iron 28 L TIBC 341 % Saturation 8.2 L Troponin I Triglycerides 139 Cholesterol 182 LDL Cholesterol 115.0 VLDL Cholesterol 27.8 HDL Cholesterol 42 Heart Disease Risk Ratio 4.33 Vitamin B12 367 Folate > 24.0 H Urine Color Straw Urine Appearance Clear Urine pH 7.0 Ur Specific [place] 1.004 Urine Protein Negative Urine Glucose (UA) Negative Urine Ketones 5 Urine Blood Small Urine Nitrate Negative Urine Bilirubin Negative Urine Urobilinogen < 2.0 H Urine Leukocytes Negative Urine RBC 1 Urine WBC 2 Ur Culture Indicated? Not indicated Quality Measures - Stroke Symptom Onset Unknown: No
[2017-01-24] MEDS: AMITRIPTYLINE 25 MG TABLET PO SCH (20:24)
[2017-01-24] MEDS ORDERED: ATORVASTATIN 40 MG TABLET PO SCH (21:00)
--- NOTE | 2017-01-24 21:25 | Cardiology Operative Report ---
Date of Procedure:: 01/24/17 Pre-op diagnosis: Aortic stenosis, acute coronary syndrome Post-op diagnosis: other (Severe three-vessel coronary artery disease, severe aortic stenosis) Procedure: 1. Selective left and right coronary angiography. 2. Right heart catheterization. 3. Right iliac angiography to rule out vascular complications. 4. Insertion of intra-aortic balloon pump. Impression: 1. Severe 4 vessel coronary artery disease. A. Ostial LAD 80% stenosis. B. Ostial intermediate ramus 90% stenosis with sequential 80% stenosis. C. Ostial circumflex artery with a hazy 80% stenosis. D. Mid right coronary artery subtotally occluded 2. Right dominant coronary arteries. 3. 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 Plan: 1. The patient became unstable with some hypotension and ischemic ECG changes associated with this. He was very anxious and required intubation and emergent placement of the intra-aortic balloon pump. He is going to be managed expectantly, and depending on his clinical evolution he may undergo surgical treatment for his conditions. Equipment: Diagnostic for Tajik JL4, JR4, catheters. Ceres-Joslyn catheter. Intra-aortic balloon pump. Hemodynamics: Aortic pressure 109/59 mmHg Right atrial pressure 7 mmHg, right ventricular pressure 39/2 mmHg, pulmonary artery pressure 35/16 mmHg, pulmonary capillary wedge pressure 17 mmHg Procedure: After informed consent was obtained the patient was prepped and draped in sterile fashion. The right groin was infiltrated with 1% lidocaine and the right femoral vein and artery artery were accessed via modified Seldinger technique using a micropuncture needle and 7 Tajik femoral venous and 4 Tajik arterial sheaths were placed. A Ceres-Joslyn catheter was advanced to the pulmonary artery where thermodilution measurements were obtained followed by recording of right-sided pressures as the catheter was withdrawn. Attention was then turned towards left heart catheterization. All catheter exchanges were performed over a guidewire under fluoroscopic guidance. Diagnostic 4 Taj[place] JL4 and JR4 catheters were advanced to the left and right coronary arteries respectively and multiple cineangiograms were performed in varying degrees of obliquity and angulation. At conclusion of the procedure right iliac angiography was performed to rule out vascular complications. Initially there were plans to perform right carotid angiography and left heart catheterization with possible left ventriculogram for further valve assessment. However, the patient became very anxious and somewhat unstable so these further assessments were not performed. After the patient was intubated and sedated, the 4 Tajik femoral arterial sheath was exchanged for intra-aortic balloon pump sheath which was placed under fluoroscopic guidance. Findings: 1. The left main artery is without significant stenosis. 2. The left anterior descending artery extends to the apex and wraps around. There is 80% ostial stenosis. 3. There is an intermediate ramus branch that is moderate in caliber. There is 90% ostial stenosis with a sequential 80% lesion in the proximal segment. 4. The circumflex artery is a nondominant vessel. There is a hazy 80% stenosis ostially. 5. The right coronary artery is a dominant vessel. There is subtotal occlusion in the mid segment with a near 100% stenosis. 6. The right iliac artery has moderate atheromatous disease without evidence of vascular complications. 7. Right heart pressures as reported above Contrast use: Visipaque 81 cc Fluoro time: 4.1 minutes Complications: Ischemia and hypotension as described above Specimens removed: none Devices implanted: Intra-aortic balloon pump Anesthesia: moderate conscious sedation Surgeon / Physician: Mariam Armenta Hospitality Specialist: none (Millie Hnaley) Estimated blood loss: minimal Specimens: none sent Condition: critical Disposition: ICU/CCU
--- NOTE | 2017-01-24 21:27 | Event Note ---
Intraoperatively, the patient became increasingly anxious, and eventually mildly hypotensive. There were some ischemic ECG changes and complaints of chest pain corresponding with these clinical developments. It was felt that the patient would require intra-aortic balloon pump to support his cardiac condition but he was too anxious to lay still and was insisting on sitting up. Accordingly we decided to electively intubate him and sedate him so that we could provide support. This was performed electively. Dr. Aj was consulted intraoperatively and we spoke with the patient's family at length postoperatively. At this point the plan is to try to stabilize the patient and see if he would be a candidate for staging cardiac surgery at a future date if we are able to overcome this acute setback.
[2017-01-24 23:25] LABS: Troponin I Only 0.152 NG/ML (0.00-0.045)
[2017-01-25] MEDS: ALBUTEROL/IPRATROPIUM 3 ML NEB RESP TX SCH ×2 (00:39→07:30)
[2017-01-25] MEDS: methylPREDNISolone SOD SUC 125 MG/2 ML VIAL IV SCH ×2 (01:11→10:40)
[2017-01-25] MEDS: PROPOFOL 1,000 MG/100 ML BOTTLE IV SCH ×3 (01:15→14:30)
[2017-01-25] MEDS: SODIUM CHLORIDE 0.45% 1,000 ML IV SCH ×2 (01:47→14:05)
[2017-01-25 06:46] LABS: Basophils % 0.3 % (0.0-0.8); Hematocrit 32.7 VOL% (42.0-52.0); Hemoglobin 10.1 GM/DL (14.0-18.0); Immature Granulocytes % 1.3 %; Immature Granulocytes Absolute 0.09 #; Lymphocytes # 0.5 10*3/uL (1.4-4.0); Lymphocytes % 7.4 % (21.2-54.2); Mean Corpuscular HGB Conc 30.9 GM/DL (32-36); Mean Corpuscular Hemoglobin 24 PG (27-34); Mean Platelet Volume 11.3 FL (9.6-12.0); Monocytes # 0.2 10*3/uL (0.11-0.8); Monocytes % 2.1 % (1.7-12.7); Neutrophils # 6.4 10*3/uL (1.4-7.4); Neutrophils % 88.9 % (38.7-73.9); Platelet Count 279 T/CUMM (130-400); Red Blood Count 4.19 MC/CUMM (3.8-5.5); Red Cell Distribution Width 15.6 % (9.3-17.3); White Blood Count 7.2 T/CUMM (4-12)
[2017-01-25 07:00] LABS: ABG HCO3 21.5 MMOL/L (20-26); ABG PCO2 41.1 MM HG (35-48); ABG PH 7.337 (7.35-7.45); ABG PO2 113.2 MM HG (80-95); ABG TCO2 22.8 MMOL/L (23-27)
--- NOTE | 2017-01-25 07:39 | EKG Report ---
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
[2017-01-25 07:46] LABS: Band Neutrophils 9 % (0-10); Hypochromasia Slight; Lymphocytes 6 % (20-55); Platelet Estimate Normal; Segmented Neutrophils 85 % (50-85); Total Cells Counted 100
[2017-01-25 07:54] LABS: Calcium 8.2 MG/DL (8.5-10.1); Magnesium 2.1 MG/DL (1.8-2.4); Osmolality,Calculated 281.5 MOS/KG (273-304); Potassium 4.8 MMOL/L (3.5-5.1)
[2017-01-25 08:15] LABS: Troponin I Only 0.116 NG/ML (0.00-0.045)
[2017-01-25 08:34] LABS: ABG Base Excess -2.4 MMOL/L (-2.5-2.5); ABG HCO3 20.9 MMOL/L (20-26); ABG Oxygen Saturation 98.6 % (95-100); ABG PCO2 31.3 MM HG (35-48); ABG PH 7.443 (7.35-7.45); ABG TCO2 21.9 MMOL/L (23-27); Allen Test Positive; Pt O2 Delivery Device Ventilator
[2017-01-25 08:46] LABS: Troponin I Only 0.118 NG/ML (0.00-0.045)
[2017-01-25] MEDS: BUDESONIDE/FORMOTEROL 160-4.5 INHALER 6 GM INH SCH (09:00)
[2017-01-25] MEDS: CHOLECALCIFEROL 1,000 UNIT TABLET PO SCH (09:00)
[2017-01-25] MEDS: PANTOPRAZOLE 40 MG TABLET PO SCH (09:00)
[2017-01-25] MEDS ORDERED: ASPIRIN 325 MG TABLET PO SCH (09:00)
[2017-01-25] MEDS ORDERED: ALPRAZolam 0.5 MG TABLET PO ONE (09:12)
[2017-01-25] MEDS ORDERED: MORPHINE 2 MG/1 ML SYRINGE ONE (09:14)
[2017-01-25] MEDS ORDERED: MORPHINE 2 MG/1 ML SYRINGE IV ONE (09:21)
[2017-01-25] MEDS ORDERED: MIDAZOLAM 10 MG/2 ML VIAL ONE (09:53)
[2017-01-25] MEDS ORDERED: MIDAZOLAM 2 MG/2 ML VIAL IV ONE ×2 (09:55→11:45)
[2017-01-25] MEDS ORDERED: ROCURONIUM 100 MG/10 ML VIAL IV ONE (10:05)
[2017-01-25] MEDS ORDERED: ETOMIDATE 20 MG/10 ML VIAL IV ONE (10:05)
[2017-01-25] MEDS ORDERED: PANTOPRAZOLE 40 MG VIAL IV ONE (10:38)
[2017-01-25] MEDS ORDERED: DILTIAZEM 50 MG/10 ML VIAL IV ONE (10:39)
[2017-01-25] MEDS ORDERED: DILTIAZEM INJ 125 MG in SODIUM CHLORIDE 0.9% 100 ML IV SCH (11:00)
[2017-01-25] MEDS: FAMOTIDINE 20 MG/2 ML VIAL IV SCH (11:28)
--- NOTE | 2017-01-25 12:15 | Pulmonology Progress Note ---
Pulmonary - PN: Subj Interval history: Patient is a 81-year-old with COPD and came in with chest pain and was taken to [facility]. He has significant coronary artery disease with aortic stenosis. He had to be placed on the ventilator and balloon pump because of hypotension. He has had a good night and is now awake. His blood pressure is much improved and his oxygenation is adequate. His chest x-ray is reasonably clear. He should be able to come off the ventilator fairly quickly. Exam (Progress Note) - Constitutional Vitals: Period Temp Pulse Resp BP Sys/Lyn Pulse Ox Last 24 Hr 96.9 F-98.7 F 56-88 15-22 105-143/39-97 93-100 Exam: General appearance: normal weight, no acute distress (Patient is responding well now. ) - Head Head exam: Present: normal inspection, normocephalic - Eye Eye exam: Present: EOMI. Absent: scleral icterus Pupils: Present: ALONSO - ENT ENT exam: Present: other (ET tube is in good position) - Neck Neck exam: Present: normal inspection. Absent: lymphadenopathy, thyromegaly - Respiratory Respiratory exam: Present: He has fairly good breath sounds bilaterally and I do not hear any wheezing at present. - Cardiovascular Cardiovascular exam: Present: regular rate and rhythm, systolic murmur (He has a systolic murmur in aortic area). Absent: gallop, JVD - GI/Abdominal GI/Abdominal exam: Present: soft. Absent: distended, organomegaly, tenderness - Extremities Exam Extremities exam: Absent: calf tenderness, edema - Neurological Exam Neurological exam: Present: other (Patient is moving his extremities okay.) - Skin Skin exam: Present: warm, dry Results - Labs CBC & BMP: 01/25/17 04:00 01/24/17 04:23 Labs: His PO2 is 113 with a PCO2 of 41 and pH of 7.33 - Diagnostic Findings Procedure: Chest x-ray: image reviewed by me, report reviewed by me (Chest x- ray shows COPD changes but no infiltrates.) Assessment and Plan (1) Coronary artery disease Status: Acute Assessment and plan: The patient has had a heart cath today and has coronary artery disease. He is on a balloon pump now in the ICU. He appears to be hemodynamically stable now. Current Visit: Yes (2) Aortic stenosis Status: Acute Assessment and plan: The patient has aortic stenosis that is fairly severe on echo. Current Visit: Yes (3) Chest pain Status: Acute Assessment and plan: Patient came in with unstable angina. He seems to be doing okay at present Current Visit: Yes (4) Hypertension Status: Chronic Assessment and plan: His blood pressure stable at present. Current Visit: Yes (5) COPD (chronic obstructive pulmonary disease) Status: Chronic Assessment and plan: The patient has COPD that is moderate to markedly severe. His FEV1 was around 50% in 2015. His chest x-ray certainly suggest COPD changes. He has good breath sounds now and will continue with bronchodilator therapy. Current Visit: Yes (6) On mechanically assisted ventilation Status: Acute Assessment and plan: We will start CPAP trials now and see how he does. He should be able to come off the ventilator fairly quickly. Current Visit: Yes
--- NOTE | 2017-01-25 12:20 | Event Note ---
The patient was seen earlier this morning and was hemodynamically stable, doing well on 3-1 balloon pump timing. He denied chest pain while intubated. He was subsequently extubated, initially doing well, asymptomatic, asking to eat. However, at a little after 9 AM he began to experience chest pain and restlessness, anxiety, wanting to sit up. He was given some morphine to try to alleviate his chest pain, avoiding nitroglycerin due to his severe aortic stenosis. He continued to be restless and have chest pain. EKG demonstrated anterolateral ST depression which was worsening from his 4 AM ECG. He is already on a heparin drip. I have discussed his condition with his daughter on multiple occasions updating her with his dynamic changes. I have discussed this case with Dr. Aj, and also discussed this case with Dr. Cifuentes in [place] who has reviewed the patient's films. They have agreed to accept the patient in transfer urgently, and the daughter is agreeable to the patient going to [place]. The patient has been under sedation and is not of clear mind to entirely rely on his decision-making. He has stated simply that he would like to discuss this with his daughter. We will make arrangements for the transfer. More than likely we will need to reintubate him and sedate him in order to stabilize him for his transfer because he is very restless and up unable to lay supine with his balloon pump in.
--- NOTE | 2017-01-25 12:21 | Discharge Summary ---
<Najma Kwok E - Last Filed: 01/25/17 10:14> Hospital Course - Hospital Course Hospital Course: Mr. Kumari, 81-year-old male, presented to the emergency department at [facility] 2016 with chest pain. He had no prior known coronary artery disease. Risk factors include hypertension, advanced age and tobaccoism. He had been experiencing chest pain for approximately 1 month. He was scheduled for, and underwent cardiac catheterization performed by Dr. Mariam Armenta January 24, 2070 with the following report noted: Pre-op diagnosis: Aortic stenosis, acute coronary syndrome Post-op diagnosis: other (Severe three-vessel coronary artery disease, severe aortic stenosis) Procedure: 1. Selective left and right coronary angiography. 2. Right heart catheterization. 3. Right iliac angiography to rule out vascular complications. 4. Insertion of intra-aortic balloon pump. Impression: 1. Severe 4 vessel coronary artery disease. A. Ostial LAD 80% stenosis. B. Ostial intermediate ramus 90% stenosis with sequential 80% stenosis. C. Ostial circumflex artery with a hazy 80% stenosis. D. Mid right coronary artery subtotally occluded 2. Right dominant coronary arteries. 3. 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 Plan: 1. The patient became unstable with some hypotension and ischemic ECG changes associated with this. He was very anxious and required intubation and emergent placement of the intra-aortic balloon pump. He is going to be managed expectantly, and depending on his clinical evolution he may undergo surgical treatment for his conditions. Equipment: Diagnostic for E[place]an JL4, JR4, catheters. Essex-Joslyn catheter. Intra-aortic balloon pump. Hemodynamics: Aortic pressure 109/59 mmHg Right atrial pressure 7 mmHg, right ventricular pressure 39/2 mmHg, pulmonary artery pressure 35/16 mmHg, pulmonary capillary wedge pressure 17 mmHg Procedure: After informed consent was obtained the patient was prepped and draped in sterile fashion. The right groin was infiltrated with 1% lidocaine and the right femoral vein and artery artery were accessed via modified Seldinger technique using a micropuncture needle and 7 Eritrean femoral venous and 4 Eritrean arterial sheaths were placed. A Essex-Joslyn catheter was advanced to the pulmonary artery where thermodilution measurements were obtained followed by recording of right-sided pressures as the catheter was withdrawn. Attention was then turned towards left heart catheterization. All catheter exchanges were performed over a guidewire under fluoroscopic guidance. Diagnostic 4 E[place]an JL4 and JR4 catheters were advanced to the left and right coronary arteries respectively and multiple cineangiograms were performed in varying degrees of obliquity and angulation. At conclusion of the procedure right iliac angiography was performed to rule out vascular complications. Initially there were plans to perform right carotid angiography and left heart catheterization with possible left ventriculogram for further valve assessment. However, the patient became very anxious and somewhat unstable so these further assessments were not performed. After the patient was intubated and sedated, the 4 Eritrean femoral arterial sheath was exchanged for intra-aortic balloon pump sheath which was placed under fluoroscopic guidance. Findings: 1. The left main artery is without significant stenosis. 2. The left anterior descending artery extends to the apex and wraps around. There is 80% ostial stenosis. 3. There is an intermediate ramus branch that is moderate in caliber. There is 90% ostial stenosis with a sequential 80% lesion in the proximal segment. 4. The circumflex artery is a nondominant vessel. There is a hazy 80% stenosis ostially. 5. The right coronary artery is a dominant vessel. There is subtotal occlusion in the mid segment with a near 100% stenosis. 6. The right iliac artery has moderate atheromatous disease without evidence of vascular complications. 7. Right heart pressures as reported above Contrast use: Visipaque 81 cc Fluoro time: 4.1 minutes Complications: Ischemia and hypotension as described above Specimens removed: none Devices implanted: Intra-aortic balloon pump Intraoperatively, the patient became increasingly anxious and eventually mildly hypotensive. There were ischemic EKG changes and complaints of chest pain corresponding with these clinical developments. Patient did require intra- aortic balloon pump to support his cardiac condition. He was too anxious to lie flat and was insisting on sitting up. Accordingly, patient was electively intubated and sedated in order to effectively provide support. Dr. Jean Marie Kelly, Cardiothoracic Surgeon, was consulted intraoperatively with a plan to stabilize the patient and further evaluate. Overnight, patient seemed to stabilize. Patient was subsequently extubated, initially doing well, asymptomatic. Shortly thereafter, he began to experience chest pain, restlessness, anxiety and wanting to sit up. EKG then demonstrated anterolateral ST depression which was worsening from his 4 AM EKG. His heparin drip continued. He was reintubated. The case was discussed with Dr. Cifuentes at [facility], [place], [place]. He had reviewed the patient's films. He agreed to accept the patient in transfer urgently, and the daughter is agreeable to the patient going to [place]. The patient has been under sedation and is not a clear mind to entirely rule out his decision- making. He continues to require balloon pump. At this time, patient is being transferred emergently via ambulance to [facility]. 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 (9) Coronary artery disease Status: Chronic (10) Aortic stenosis Status: Chronic (11) On mechanically assisted ventilation Status: Acute Specialty Discharge - Follow Up or Referrals Follow up with: Mariam Armenta MD [Physician] - (1 month) Discharge Plan - Discharge Data Disposition: Disch/Xfer-[facility] Condition at Discharge: Guarded Discharge Diet: other (NPO) Activity: other (bedrest ) - Discharge Medications New Amitriptyline [Elavil] 25 mg PO BEDTIME tablet Atorvastatin [Lipitor] 80 mg PO BEDTIME tablet diphenhydrAMINE CAP [Benadryl Cap] 50 mg PO Q6H PRN capsule PRN Reason: Allergic Reaction Famotidine Inj [Pepcid Inj] 20 mg IV Q12H vial methylPREDNISolone SOD SUC INJ [SoluMEDROL] 125 mg IV Q8H vial Pantoprazole Tab [Protonix Tab] 40 mg PO DAILY tablet Aspirin Tab 325 mg PO DAILY tablet Continue Amitriptyline [Elavil] 25 mg PO BEDTIME Omeprazole 1 tablet PO DAILY Tamsulosin [Flomax] 0.4 mg PO DAILY Budesonide/Formoterol 160-4.5 [Symbicort 160-4.5] 2 puff INH BID Cholecalciferol (Vitamin D3) [Vitamin D3] 2,000 units PO BID Ipratropium/Albuterol Sulfate [Iprat-Albut 0.5-3(2.5) mg/3 ml] 3 ml INH QID Albuterol Sulfate [Ventolin HFA] 2 puff INH Q4H PRN PRN Reason: Shortness Of Breath/Wheezing Discontinued amLODIPine [Norvasc] 10 mg PO BEDTIME - Follow Up or Referral Follow Up: Mariam Armenta MD [Physician] - (1 month) - Forms/Instructions Exam - Constitutional Vitals: Period Temp Pulse Resp BP Sys/Lyn Pulse Ox Last 24 Hr 96.9 F-98 F 56-137 9-24 105-170/38-97 89-100 Exam: General: [Intubated, sedated. Appears comfortable. ] HEENT: [Normocephalic, atraumatic. Mucous membranes moist. No jaundice noted. Conjunctiva moist and clear, sclerae anicteric] Neck: No JVD/HJR, no thyromegaly or lymphadenopathy noted. Cardiac: [Regular rate and rhythm.] [III/ NATHAN heard best at BUSB. Lungs: [Clear to auscultation with symmetrical chest wall movements. Intubated. Abdomen: Soft, bowel sounds normoactive. Nontender and nondistended. No abdominal bruit or thrill noted. No masses noted. Musculoskeletal: No fluid collection. Decreased range of motion is noted. Extremities: Right groin stable without hematoma or bleeding. IABP device intact. No clubbing, cyanosis noted. [ No edema noted.] Upper extremity pulses 2+. Lower extremity pulses 2+. Capillary refill less than 3 seconds. Skin: No unusual lesions or rashes. No skin breakdown appreciated. Neuro: Wakes and responds appropriately, moving all extremities well without hemiparesis or paralysis. No essential tremor is appreciated. Discharge Results Procedures and tests throughout hospitalization: Pending Orders 01/24/17 14:45 MRSA Surveillence, Inf Control Routine Labs on day of discharge: Labs from last 24 hours 01/25/17 01/25/17 01/25/17 13:41 13:19 08:25 WBC RBC Hgb Hct MCV MCH MCHC RDW Plt Count MPV Neut % (Auto) Lymph % (Auto) [place] % (Auto) Eos % (Auto) Baso % (Auto) Neut # (Auto) Lymph # (Auto) [place] # (Auto) Eos # (Auto) Baso # (Auto) Total Counted Immature Gran % Nucleated RBC % Immature Gran # Segmented Neutrophils Band Neutrophils Lymphocytes Nucleated RBCs # Platelet Estimate Hypochromasia Circ Anticoag PTT 39.3 ABG pH 7.324 L 7.443 ABG pCO2 45.0 31.3 L ABG pO2 82.2 142.0 H ABG HCO3 22.1 20.9 ABG Total CO2 21.4 L 21.9 L ABG O2 Saturation 95.5 98.6 ABG Base Excess -2.7 L -2.4 FiO2 40.00 Sodium Potassium Chloride Carbon Dioxide Anion Gap BUN Creatinine GFR Calculation BUN/Creatinine Ratio Glucose Calculated Osmolality Calcium Magnesium Total Creatine Kinase CK-MB (CK-2) Troponin I 01/25/17 01/25/17 01/25/17 07:20 07:04 06:53 WBC RBC Hgb Hct MCV MCH MCHC RDW Plt Count MPV Neut % (Auto) Lymph % (Auto) [place] % (Auto) Eos % (Auto) Baso % (Auto) Neut # (Auto) Lymph # (Auto) [place] # (Auto) Eos # (Auto) Baso # (Auto) Total Counted Immature Gran % Nucleated RBC % Immature Gran # Segmented Neutrophils Band Neutrophils Lymphocytes Nucleated RBCs # Platelet Estimate Hypochromasia Circ Anticoag PTT ABG pH ABG pCO2 ABG pO2 ABG HCO3 ABG Total CO2 ABG O2 Saturation ABG Base Excess FiO2 Sodium 139 Potassium 4.8 Chloride 106 Carbon Dioxide 22 Anion Gap 15.8 H BUN 18 Creatinine 1.20 GFR Calculation 62 BUN/Creatinine Ratio 15.00 Glucose 150 H Calculated Osmolality 281.5 Calcium 8.2 L Magnesium 2.1 Total Creatine Kinase 92 D 63 CK-MB (CK-2) 2.5 2.6 Troponin I 0.118 H 0.116 H D 01/25/17 01/25/17 01/25/17 04:00 04:00 02:59 WBC 7.2 D RBC 4.19 Hgb 10.1 L Hct 32.7 L MCV 78.0 L MCH 24 L MCHC 30.9 L RDW 15.6 Plt Count 279 MPV 11.3 Neut % (Auto) 88.9 H Lymph % (Auto) 7.4 L [place] % (Auto) 2.1 Eos % (Auto) 0.0 Baso % (Auto) 0.3 Neut # (Auto) 6.4 Lymph # (Auto) 0.5 L [place] # (Auto) 0.2 Eos # (Auto) 0.0 Baso # (Auto) 0.0 Total Counted 100 Immature Gran % 1.3 Nucleated RBC % 0.0 Immature Gran # 0.09 Segmented Neutrophils 85 Band Neutrophils 9 Lymphocytes 6 L Nucleated RBCs # 0.00 Platelet Estimate Normal Hypochromasia Slight Circ Anticoag PTT 40.7 H ABG pH 7.337 L ABG pCO2 41.1 ABG pO2 113.2 H ABG HCO3 21.5 ABG Total CO2 22.8 L ABG O2 Saturation 98.0 ABG Base Excess -4.0 L FiO2 Sodium Potassium Chloride Carbon Dioxide Anion Gap BUN Creatinine GFR Calculation BUN/Creatinine Ratio Glucose Calculated Osmolality Calcium Magnesium Total Creatine Kinase CK-MB (CK-2) Troponin I 01/24/17 01/24/17 22:33 22:33 WBC RBC Hgb Hct MCV MCH MCHC RDW Plt Count MPV Neut % (Auto) Lymph % (Auto) [place] % (Auto) Eos % (Auto) Baso % (Auto) Neut # (Auto) Lymph # (Auto) [place] # (Auto) Eos # (Auto) Baso # (Auto) Total Counted Immature Gran % Nucleated RBC % Immature Gran # Segmented Neutrophils Band Neutrophils Lymphocytes Nucleated RBCs # Platelet Estimate Hypochromasia Circ Anticoag PTT 39.7 ABG pH ABG pCO2 ABG pO2 ABG HCO3 ABG Total CO2 ABG O2 Saturation ABG Base Excess FiO2 Sodium Potassium Chloride Carbon Dioxide Anion Gap BUN Creatinine GFR Calculation BUN/Creatinine Ratio Glucose Calculated Osmolality Calcium Magnesium Total Creatine Kinase 72 CK-MB (CK-2) 2.3 Troponin I 0.152 H D - Imaging and Cardiology Cardiology Procedure: report reviewed by me Procedure: Chest x-ray: report reviewed by me, Ultrasound: report reviewed by me DS: Provider Date of admission: 01/24/17 14:35 Primary care physician: . No PCP Attending physician on admission: Mariam Armenta, Consults: 01/24/17 14:35 Consult to Physician [CONS] Routine Comment: , 3V CAD Consulting Provider: Jean Marie Mercado Consult to Physician [CONS] Routine Comment: COPD, intubated, , 3V-CAD Consulting Provider: Jey Conner Consulting Provider Notified: Yes When should Consulting Provider be notified: Now Consult to Specialist Group: Pulmonology Person Notified: SOINA Date Notified: 01/24/17 Time Notified: 14:10 Discharging clinician: Najma Kwok NP Expected date of discharge: 01/25/17 <Mariam Armenta - Last Filed: 01/25/17 20:17> Diagnosis - Discharge Diagnosis (1) Chest pain Status: Acute (2) Elevated troponin Status: Acute (3) Hypertension Status: Chronic (4) Carotid bruit Status: Acute (5) Murmur Status: Acute (6) Lower extremity edema Status: Chronic (7) Abdominal aneurysm Status: Chronic (8) COPD (chronic obstructive pulmonary disease) Status: Chronic (9) Anemia Status: Acute (10) 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
--- NOTE | 2017-01-25 12:21 | Anesthesia Procedures ---
Anesthesia Procedures - Intubation Time out performed intubation: Yes Sedative: Etomidate (etomidate 20mg, versed 2mg) Paralytic: Rocuronium Mg given paralytic: 50 Laryngoscope: Josh (#4) ET Tube Size: 8 ET Tube Uncuffed: No Tube Secured Depth (cm): 23 Tube Secured Location: other Tube Placement Confirmation: visualized tube passing through cords, equal breath sounds bilaterally, no breath sounds over epigastrium, confirmation detector color change Patient tolerated procedure intubation: well Intubation Complications: none (placed on vent per RT settings : simv-10; tv-600 ; peep-5; fio2 50%)
[2017-01-25 13:40] LABS: ABG Base Excess -2.7 MMOL/L (-2.5-2.5); ABG HCO3 22.1 MMOL/L (20-26); ABG Oxygen Saturation 95.5 % (95-100); ABG PH 7.324 (7.35-7.45); ABG PO2 82.2 MM HG (80-95); ABG TCO2 21.4 MMOL/L (23-27)
--- NOTE | 2017-01-25 14:03 | XRay Report ---
Referring Physician: Jey Conner MD Exam: XR chest 1V portable Date: January 25, 2017 at 2:49 AM Reason: On ventilator Comparison: Chest one view portable January 23, 2017 Findings: An endotracheal tube is in place with its distal tip at the level of the aortic arch, approximately 3 cm above the ronni. The cardiac silhouette is normal in size, but there is prominent calcified plaque at the aortic arch. Minimal scattered, mainly reticular opacities are seen within both lower lung zones. This is most consistent with atelectasis or scarring. Minimal pulmonary edema is not excluded. No pneumothorax or pleural effusion is identified. The osseous structures appear stable. Impression: An endotracheal tube is now in place. The study is otherwise similar to before. PROCEDURE INTERPRETED AT [facility] DEPARTMENT OF RADIOLOGY Final Report Signed by: Dr. Kiara Perez
[2017-01-25 14:05] VITALS: BP 138/50
--- NOTE | 2017-01-25 14:06 | XRay Report ---
Portable chest Date: 01/25/2017 Clinical history: Endotracheal tube placement Comparison: 01/25/2017 Technique: Portable AP sitting chest Findings: The heart is normal in size with calcification in the wall of the aorta. The endotracheal tube is in satisfactory position. Progressive diffuse parenchymal findings with small right pleural effusion. Stable mediastinum and osseous structures. Impression: The endotracheal tube remains in satisfactory position. Progressive mild to moderate pulmonary edema with small right pleural effusion. Underlying bullous emphysema with chronic scarring. PROCEDURE INTERPRETED AT [facility] DEPARTMENT OF RADIOLOGY Final Report Signed by: Dr. Jailene Land
--- NOTE | 2017-01-25 14:06 | EKG Report ---
Stationary ECG Study [facility] Test Date: 01/25/2017 9:21:42 AM Pat Name: DENNISE VALLES Department: Room: 104 Gender: M Drugless Physician: : [id number] Requested by: Mariam Armenta Order Number: [id number] Reading MD: STEPHANIE ARELLANO Intervals [place] Rate: 106 P: 58 WI: 140 QRS: 53 QRSD: 93 T: 75 QT: 354 QTc: 416 Interpretive Statements SINUS TACHYCARDIA MARKED ST DEPRESSION, CONSIDER SUBENDOCARDIAL INJURY Electronically Signed On 01-28-17 15:22:43 CDT by STEPHANIE ARELLANO [email or web address]
[2017-01-25] MEDS: HEPARIN DRIP 25,000 UNITS/500 ML PREMIX IV SCH (14:35)
[2017-01-26] MEDS ORDERED: FAMOTIDINE 20 MG TABLET PO SCH (09:00)
== END 2017-01-25 14:55 | disposition hospice, home (50) | DRG 271 ==
LOC: N.EDINP 15:25 → N.ED 15:25 → N.TELEN 18:50 → N.CVR 01-24 14:25
PROVIDERS: ADMIT Internal Medicine Cardiovascular Disease; ATTEND Internal Medicine Cardiovascular Disease